=== PATIENT | female | born 1945 | race Caucasian/White ===

== ENCOUNTER 2016-09-22 07:43 | Day surgery (SDC) | payer MEDICARE, OTHER ==
[2016-09-17 14:49] VITALS: BMI 29.9
[~2016-09-22 07:43] MED LIST: LACTATED RINGERS 1,000 ML IV SCH
[2016-09-22 09:06] VITALS: RESP 18; TEMP 96.9
[2016-09-22 09:16] LABS: Glucose,Whole Blood 246 mg/dL (75-99)
[2016-09-22] MEDS ORDERED: LIDOCAINE 1% 20 ML VIAL (10MG/ML) FOR IV START INTRADERMA ONE (09:18)
[2016-09-22] MEDS ORDERED: LIDOCAINE 1% INJ 10MG/ML (20 ML MDV) ONE (09:20)
[2016-09-22] MEDS ORDERED: PROPOFOL 10 MG/ML 20 ML VIAL IV ONE (09:20)
--- NOTE | 2016-09-22 09:23 | P.GSHP ---
History of Present Illness H&P Date: 09/22/16 Chief Complaint: History of colon polyps This a 70-year-old female who presents today for colonoscopy. She is a history of previous colon polyps. Her last colonoscopy was 4 years ago. Past Medical History Past Medical History: Diabetes Mellitus, Deep Vein Thrombosis (DVT), Osteoarthritis (OA) Additional Past Medical History / Comment(s): DVT R leg History of Any Multi-Drug Resistant Organisms: None Reported Past Surgical History: Cholecystectomy, Tubal Ligation Additional Past Surgical History / Comment(s): [place] filter ; removal of benign adrenal gland tumor; colonoscopies Past Anesthesia/Blood Transfusion Reactions: No Reported Reaction Smoking Status: Current every day smoker Past Alcohol Use History: Rare Additional Past Alcohol Use History / Comment(s): has smoked for 40 years 1/2 pack a day Past Drug Use History: None Reported Additional Drug Use History / Comment(s): previous marijuana use - Past Family History Mother Family Medical History: No Reported History Medications and Allergies Home Medications Medication Instructions Recorded Confirmed Type Aspirin [Adult Low Dose Aspirin EC] 81 mg PO DAILY 09/17/16 09/22/16 History Insulin Glargine [Lantus] 10 unit SQ HS 09/17/16 09/22/16 History metFORMIN HCL [Metformin HCl] 500 mg PO BID 09/17/16 09/22/16 History Allergies Allergy/AdvReac Type Severity Reaction Status Date / Time No Known Allergies Allergy Verified 09/22/16 09:05 Surgical - Exam Vital Signs Temp Pulse Resp BP Pulse Ox 96.9 F L 79 18 139/78 98 09/22/16 09:05 09/22/16 09:05 09/22/16 09:05 09/22/16 09:05 09/22/16 09:05 - General well developed, no distress - Eyes PERRL - ENT normal pinna - Neck no masses - Respiratory normal expansion - Cardiovascular Rhythm: regular - Abdomen Abdomen: soft, non tender Results - Labs Abnormal Lab Results - Last 24 Hours (Table) 09/22/16 Range/Units 09:12 POC Glucose (mg/dL) 246 H (75-99) mg/dL Assessment and Plan Plan: History of colon polyps. We'll perform colonoscopy.
--- NOTE | 2016-09-22 09:39 | P.OP ---
Date of Procedure: 09/22/16 Preoperative Diagnosis: Colon polyp Postoperative Diagnosis: Sigmoid colon polyp Diverticulosis Procedure(s) Performed: Colonoscopy Implants: Anesthesia: MAC Surgeon: Dayton Prajapati Pathology: other (Sigmoid colon polyp) Condition: stable Disposition: PACU Indications for Procedure: Operative Findings: Description of Procedure: The patient's placed on the endoscopy table in the lateral position. She received IV sedation. Digital rectal exam was performed which revealed no abnormalities. The flexible colonoscope was then placed patient anus passed throughout the entire colon. The ileocecal valve was measured. The cecum, ascending colon and transverse colon appeared normal. In the descending and sigmoid colon there is diverticular changes. In the sigmoid colon there was another polyp seen this removed the forcep. Scope was then brought back the rectum and this appeared normal. Scope was withdrawn for patient.
[2016-09-22 10:11] VITALS: BP 159/86; PULSE 87
== END 2016-09-22 10:29 | disposition home or self-care (01) ==
LOC: ORWHC2ENDO 07:43
PROVIDERS: ATTEND Surgery
DX: Z12.11 Encounter for screening for malignant neoplasm of colon (principal); D12.5 Benign neoplasm of sigmoid colon; K57.30 Diverticulosis of large intestine without perforation or abscess without bleeding; E11.9 Type 2 diabetes mellitus without complications; M19.90 Unspecified osteoarthritis, unspecified site; F17.200 Nicotine dependence, unspecified, uncomplicated; Z86.010 Personal history of colon polyps; Z79.82 Long term (current) use of aspirin; Z79.84 Long term (current) use of oral hypoglycemic drugs; Z79.4 Long term (current) use of insulin; Z86.718 Personal history of other venous thrombosis and embolism; Z90.49 Acquired absence of other specified parts of digestive tract; Z98.51 Tubal ligation status
CPT/HCPCS: 45380; 88305; J2001; J2704

== ENCOUNTER → 2016-09-28 | Outpatient (CLI) | payer MEDICARE, OTHER ==
--- NOTE | 2016-09-29 11:20 | MM ---
Reason for exam: screening (asymptomatic). Last mammogram was performed 2 years and 1 month ago. History: Patient is postmenopausal. Family history of breast cancer in maternal grandmother. Benign US biopsy breast VAD LT of the left breast, September 12, 2014. Physical Findings: A clinical breast exam by your physician is recommended on an annual basis and results should be correlated with mammographic findings. MG 3D Screening Mammo W/Cad Bilateral CC and MLO view(s) were taken. Prior study comparison: September 12, 2014, left breast MG diagnostic mammo LT wo CAD. August 21, 2014, bilateral MG diagnostic mammo w CAD [place]. There are scattered fibroglandular densities. Previous mammotome biopsy in the left breast. No significant changes when compared with prior studies. ASSESSMENT: Benign, BI-RAD 2 RECOMMENDATION: Routine screening mammogram of both breasts in 1 year.
--- NOTE | 2016-09-29 11:33 | BD ---
EXAMINATION TYPE: MG DEXA axial skeleton. DATE OF EXAM: 09/28/2016 COMPARISON: NONE CLINICAL HISTORY: Height: 62 IN Weight: 170 LBS FRAX RISK QUESTIONS: Alcohol (3 or more units per day): NO Family History (Parent hip fracture): NO Glucocorticoids (More than 3mos): NO (Ex: prednisone, prednisolone, methylprednisolone, dexamethasone, and hydrocortisone). History of Fracture in Adulthood: NO Secondary Osteoporosis: 1. Type 1 Diabetes: NO 2. Hyperthyroidism: NO 3. Menopause before 45: NO 4. Malnutrition: NO 5. Chronic liver disease: NO Rheumatoid Arthritis: NO Current Tobacco Use: YES RISK FACTORS HISTORY OF: Active: MODERATE Postmenopausal woman: AGE 53 Lost more than 2 inches in height since high school: YES 3 " Frequent falls: BALANCE ISSUES MEDICATIONS: Additional Medications: VIT D, DIABETES MEDS EXAM MEASUREMENTS: Bone mineral densitometry was performed using the [employer] System. Bone mineral density as measured about the Lumbar spine is: ----- L1-L4(G/cm2): 0.960 T Score Values are as follows: ----- L2: -2.7 ----- L3: -2.0 ----- L4: -1.5 ----- L1-L4: -1.8 Bone mineral density has: Decreased -5.1% since study of: 01/12/2007 Bone mineral density about the R hip (g/cm2): 0.787 Bone mineral density about the L hip (g/cm2): 0.792 T Score values are as follows: -----R Neck: -1.8 -----L Neck: -1.8 -----R Total: -1.2 -----L Total: -1.1 Bone mineral density has: Decreased -15.0% since study of: 01/12/2007 IMPRESSION: Osteopenia (T Score between -2.5 and -1 as noted by T score values There is slightly increased risk of fracture and the patient may be considered for treatment. Re-Screen 2-5 years. Bone density is diminished 5.1% from the comparison 01/12/2007 within the lumbar spine. Bone density w ithin the bilateral hips is diminished 15% from 2017 NOTE: T-SCORE=SD OF THE YOUNG ADULT MEAN.
== END | disposition home or self-care (01) ==
LOC: RADMAMWWP 15:03
PROVIDERS: ATTEND Family Medicine
DX: Z12.31 Encounter for screening mammogram for malignant neoplasm of breast (principal); M85.80 Other specified disorders of bone density and structure, unspecified site
CPT/HCPCS: 77080; 77063; G0202

== ENCOUNTER → 2017-07-28 | Outpatient (CLI) | payer MEDICARE, OTHER ==
[2017-07-28 17:53] LABS: HCT 42.6 % (34.0-46.0); HGB 14.3 gm/dL (11.4-16.0); MCH 30.1 pg (25.0-35.0); MCHC 33.6 g/dL (31.0-37.0); MCV 89.7 fL (80.0-100.0); Mean Platelet Volume 7.6; Platelet Count 276 k/uL (150-450); RBC 4.75 m/uL (3.80-5.40); WBC 10.6 k/uL (3.8-10.6)
[2017-07-28 17:57] LABS: Anion Gap 11 mmol/L; Blood Urea Nitrogen 17 mg/dL (7-17); Carbon Dioxide 29 mmol/L (22-30); Chloride 97 mmol/L (98-107); Potassium 5.4 mmol/L (3.5-5.1); Sodium 137 mmol/L (137-145)
== END | disposition home or self-care (01) ==
LOC: LABPAT 16:54
PROVIDERS: ATTEND Internal Medicine Cardiovascular Disease
DX: Z01.812 Encounter for preprocedural laboratory examination (principal); I25.5 Ischemic cardiomyopathy
CPT/HCPCS: 36415; 80051; 82565; 84520; 85027

== ENCOUNTER 2017-08-01 07:38 | Day surgery (SDC) | payer MEDICARE, OTHER ==
[2017-07-29 08:55] VITALS: BMI 28.6
[~2017-08-01 07:38] MED LIST changes: +ALPRAZolam 0.25 MG TAB PO PRN; +ALPRAZolam 0.5 MG TAB PO PRN; +ASPIRIN 325 MG TAB PO STA; +ATORVASTATIN 80 MG TAB PO STA; -LACTATED RINGERS 1,000 ML IV SCH; +NITROGLYCERIN SL TABS 0.4 MG TAB SUBLINGUAL PRN; +SODIUM CHLORIDE 0.9% 1,000 ML in EMPTY BAG 1 BAG IV ONE
[2017-08-01 08:35] LABS: Glucose,Whole Blood 303 mg/dL (75-99)
[2017-08-01] MEDS ORDERED: INSULIN ASPART 100 UNIT/ML 1 ML 10 ML VIAL SQ ONE ×2 (08:39→11:37)
[2017-08-01] MEDS ORDERED: LIDOCAINE 2% INJ 20 MG/ML (20 ML MDV) ONE (09:00)
[2017-08-01] MEDS ORDERED: MIDAZOLAM 2 MG/2 ML VIAL ONE (09:00)
[2017-08-01] MEDS ORDERED: MIDAZOLAM 2 MG/2 ML VIAL IVP ONE (09:09)
[2017-08-01] MEDS ORDERED: LIDOCAINE 2% INJ 20 MG/ML SQ ONE (09:11)
[2017-08-01] MEDS ORDERED: BIVALIRUDIN BOLUS 250 MG/50 ML IV ONE (09:51)
[2017-08-01] MEDS ORDERED: BIVALIRUDIN 250 MG in SODIUM CHLORIDE 0.9% 50 ML IV ONE (09:53)
[2017-08-01] MEDS: NITROGLYCERIN 1000MCG/10ML SYRINGE INTRACORON ONE ×2 (10:04→10:30)
[2017-08-01] MEDS ORDERED: CLOPIDOGREL 75 MG TAB ONE (10:08)
[2017-08-01] MEDS ORDERED: CLOPIDOGREL 75 MG TAB PO ONE (10:10)
[2017-08-01] MEDS ORDERED: IOPAMIDOL-370 125ML BTL INJ ONE (10:10)
--- NOTE | 2017-08-01 10:11 | CC ---
CARDIAC CATHETERIZATION REPORT REFERRING PHYSICIAN: Dr. Preston Wolf. INDICATION: Ischemic cardiomyopathy with abnormal stress test. PROCEDURE NOTE: After obtaining informed consent, left heart catheterization, coronary angiogram are performed via the right femoral artery using standard Clemente catheters. Patient tolerated the procedure well without any obvious immediate complications. Patient received moderate conscious sedation and total sedation time was 18 minutes. FINDINGS: HEMODYNAMICS: Left ventricular end-diastolic pressure is 4-8 mm. There is no significant gradient across the aortic valve. LEFT VENTRICULOGRAM: Left ventriculogram: Left ventriculogram is not performed. ANGIOGRAPHIC DATA: 1. Left main coronary artery: Left main coronary artery is a normal-sized vessel appears calcified but is free of stenosis. Divides into left anterior descending coronary artery and circumflex coronary artery. 2. Left anterior descending coronary artery: LAD is a large vessel that wraps around the apex of the heart. There are homocollaterals going from the distal LAD to the OM branch. The [place] circumflex coronary artery is a codominant system, gives off a large caliber OM branch that shows a long area of stenosis, at its worse it is an 80% to 90% stenosis. 3. Right coronary artery appears calcified, shows an area of stenosis in its midportion, at its worst it seems to be 70% stenosis. The distal LAD also shows an area of stenosis. CONCLUSIONS: [place] 3-vessel coronary artery disease as described above with a critical lesion within the OM branch and the mid RCA. PLAN: I will ask Dr. Sal the on-call glove tagger to evaluate the angiographic data and advise on angioplasty of the [place] OM and right coronary artery. MMODL / IJN: [id number] /
[2017-08-01] MEDS ORDERED: IOPAMIDOL-370 100ML BTL INJ ONE (10:35)
[2017-08-01] MEDS ORDERED: RX INFO: IV CONTRAST WAS GIVEN 1 EACH MISC MISCELLANE PRN (10:41)
[2017-08-01] MEDS ORDERED: MAG HYDROX/AL HYDROX/SIMETH 30 ML CUP PO PRN (10:41)
[2017-08-01] MEDS ORDERED: ATROPINE SULFATE 0.1 MG/ML 10ML SYRINGE IV PRN (10:41)
[2017-08-01] MEDS ORDERED: ZOLPIDEM 5 MG TAB PO PRN (10:41)
[2017-08-01] MEDS ORDERED: SODIUM CHLORIDE 0.9% 1,000 ML IV SCH (10:45)
[2017-08-01 11:06] LABS: Glucose,Whole Blood 240 mg/dL (75-99)
[2017-08-01] MEDS: NYSTATIN 100,000 UNIT/GM POWD 15 GM TOPICAL SCH ×2 (13:42→20:12)
[2017-08-01] MEDS: HYDROcodone/APAP 5-325MG 1 EACH TAB PO PRN ×2 (15:09→21:12)
[2017-08-01 17:07] LABS: Glucose,Whole Blood 234 mg/dL (75-99)
[2017-08-01] MEDS: INSULIN ASPART 100 UNIT/ML 1 ML 10 ML VIAL SQ SCH ×2 (17:52→21:15)
[2017-08-01 20:23] LABS: Glucose,Whole Blood 262 mg/dL (75-99)
[2017-08-02 02:44] LABS: Glucose,Whole Blood 150 mg/dL (75-99)
[2017-08-02] MEDS: HYDROcodone/APAP 5-325MG 1 EACH TAB PO PRN (02:56)
[2017-08-02 06:05] LABS: Basophils % (A) 1 %; Eosinophils # (A) 0.3 k/uL (0-0.7); Eosinophils % (A) 3 %; HCT 39.5 % (34.0-46.0); HGB 13.2 gm/dL (11.4-16.0); Lymphocytes # (A) 1.6 k/uL (1.0-4.8); Lymphocytes % (A) 21 %; MCH 29.3 pg (25.0-35.0); MCHC 33.5 g/dL (31.0-37.0); MCV 87.3 fL (80.0-100.0); Mean Platelet Volume 7.7; Monocytes # (A) 0.4 k/uL (0-1.0); Monocytes % (A) 5 %; Neutrophils # (A) 5.1 k/uL (1.3-7.7); Neutrophils % (A) 68 %; Platelet Count 197 k/uL (150-450); RBC 4.52 m/uL (3.80-5.40); WBC 7.5 k/uL (3.8-10.6)
[2017-08-02 06:14] LABS: Glucose,Whole Blood 202 mg/dL (75-99)
[2017-08-02 06:18] LABS: Anion Gap 5 mmol/L; Blood Urea Nitrogen 15 mg/dL (7-17); Calcium 8.5 mg/dL (8.4-10.2); Carbon Dioxide 28 mmol/L (22-30); Chloride 103 mmol/L (98-107); Glucose 189 mg/dL (74-99); Potassium 4.9 mmol/L (3.5-5.1); Sodium 136 mmol/L (137-145)
[2017-08-02] MEDS: INSULIN ASPART 100 UNIT/ML 1 ML 10 ML VIAL SQ SCH (06:43)
[2017-08-02 08:36] VITALS: BP 114/68; PULSE 81; RESP 18; TEMP 96.9
[2017-08-02] MEDS: NYSTATIN 100,000 UNIT/GM POWD 15 GM TOPICAL SCH (08:55)
[2017-08-02] MEDS ORDERED: METOPROLOL SUCCINATE (ER) 25 MG TAB.ER.24H PO SCH (09:00)
[2017-08-02] MEDS ORDERED: INSULIN DETEMIR 100 UNIT/ML 10 ML VIAL SQ SCH (09:00)
[2017-08-02] MEDS ORDERED: ASPIRIN 325 MG TAB PO SCH (09:00)
[2017-08-02] MEDS ORDERED: CLOPIDOGREL 75 MG TAB PO SCH (09:00)
[2017-08-02] MEDS ORDERED: ATORVASTATIN 40 MG TAB PO SCH (10:14)
--- NOTE | 2017-08-02 10:23 | P.DS ---
Providers Date of admission: 08/01/2017 Expected date of discharge: 08/02/17 Attending physician: Alex Kerr Consults: 08/01/17 10:41 Consult Physician Routine Consulting Provider: [facility] Consult Reason/Comments: Post Interventional patient Do you want consulting provider notified?: Already Contacted Primary care physician: Stated None Hospital Course: Mrs. Ramos is a pleasant 71-year-old female who was brought in for an elective cardiac catheterization after a positive outpatient stress test. Catheterization revealed LM calcified but free of stenosis, LAD with collaterals from distal LAD to OM branch. [place] circumflex gives off to large OM with large area of stenosis 80-90%, RCA calcified with mid 70% stenosis. Stenting was performed to the OM and mid RCA per Dr. Sal. She is stable for discharge home on the following: plavix 75 mg daily, aspirin 325 mg, atorvastatin 40 mg and toprol 25 mg from a cardiac perspective. Resume lantus as well. Metformin to be held for one more day to resume on . Potassium on admission was elevated and kaexylate was administered. 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 LIZA inhibitor not being added at this time for that reason. She denies symptoms of chest pain, shortness of breath, palpitations, nausea, vomiting or diaphroesis. Laboratory data reviewed, hemoglobin 13.2, platelets 197, potassium 4.9, sodium 136, creatinine 0.53. Telemetry tracings have been sinus rhythm. Follow up appt has been made. Plan has been discussed with the patient and her . Blood pressure 114/68 heart rate 81 afebrile maintaining oxygen saturation on room air GENERAL: This is a 71-year-old female in no apparent distress at the time of my examination. HEENT: Head is atraumatic, normocephalic. Pupils are equal, round. Sclerae anicteric. Conjunctivae are clear. Mucous membranes of the mouth are moist. Neck is supple. There is no jugular venous distention. No carotid bruit is heard. LUNGS: Clear to auscultation no wheezes, rales or rhonchi. No chest wall tenderness is noted on palpation or with deep breathing. HEART: Regular rate and rhythm without murmurs, rubs or gallops. S1 and S2 heard. ABDOMEN: Soft, nontender. Bowel sounds are heard. No organomegaly noted. EXTREMITIES: No evidence of peripheral edema and no calf tenderness noted. Right groin soft, non-tender, no hematoma, no bleeding and no ecchymosis. VASCULAR: Radial and dorsalis pedis pulses palpated, no evidence of clubbing. NEUROLOGIC: Patient is awake, alert and oriented x3. Patient Condition at Discharge: Good Plan - Discharge Summary Discharge Rx Participant: No New Discharge Prescriptions: New Clopidogrel [Plavix] 75 mg PO DAILY #30 tab Continue Insulin Glargine [Lantus] 32 unit SQ QAM metFORMIN HCL [Metformin HCl] 500 mg PO BID Aspirin [Adult Low Dose Aspirin EC] 81 mg PO DAILY HYDROcodone/APAP 5-325MG [[place] 5-325] 1 tab PO Q6HR PRN PRN Reason: Pain Nitroglycerin Sl Tabs [Nitrostat] 0.4 mg SUBLINGUAL Q5M PRN PRN Reason: Chest Pain Metoprolol Succinate (ER) [Toprol XL] 25 mg PO DAILY Discharge Medication List Aspirin [Adult Low Dose Aspirin EC] 81 mg PO DAILY 09/17/16 [History] Insulin Glargine [Lantus] 32 unit SQ QAM 09/17/16 [History] metFORMIN HCL [Metformin HCl] 500 mg PO BID 09/17/16 [History] HYDROcodone/APAP 5-325MG [[place] 5-325] 1 tab PO Q6HR PRN 07/29/17 [History] Metoprolol Succinate (ER) [Toprol XL] 25 mg PO DAILY 07/29/17 [History] Nitroglycerin Sl Tabs [Nitrostat] 0.4 mg SUBLINGUAL Q5M PRN 07/29/17 [History] Clopidogrel [Plavix] 75 mg PO DAILY #30 tab 08/02/17 [Rx] Follow up Appointment(s)/Referral(s): Alex Kerr MD [STAFF PHYSICIAN] - 08/08/17 1:15 pm (tuesday) Patient Instructions/Handouts: *Sur[facility] - After Heart Catheterization - Utility Agent Instructions, Left Heart Catheterization (DC) Discharge Disposition: HOME SELF-CARE
[2017-08-02 15:04] LABS: Hemoglobin A1C 8.8 % (4.0-6.0)
--- NOTE | 2017-08-03 08:56 | PTCA ---
PERCUTANEOUSTRANS CORORONARY ANGIOGRAPHY DATE OF SERVICE: August 01, 2017 PERFORMING PHYSICIAN: Leonardo Sla MD. PROCEDURE PERFORMED: 1. Successful stenting of the left circumflex using 2.5 x 23 mm Vision BMS with good angiographic results. 2. Successful stenting of the RCA using 3.0 x 15 mm Vision BMS with a good angiographic results. INDICATION: This is a very pleasant 72-year-old female patient who sees Dr. Kerr in the office as an outpatient who was diagnosed recently with cardiomyopathy. She is going to undergo right foot surgery, which was a vascular surgery for evidence of critical limb ischemia. She underwent heart catheterization by Dr. Kerr and that revealed severe 2-vessel coronary artery disease involving the left circumflex and RCA and the decision was made towards percutaneous coronary intervention. We did perform the stenting using bare metal stent because the patient is going to have urgent vascular surgery. APPROACH: Right common femoral artery. COMPLICATION: None. LEVEL OF SEDATION: Moderate with sedation length of 44 minutes. PROCEDURE DESCRIPTION: Please refer to the diagnostic heart catheterization was performed by Dr. Kerr. After that, and after reviewing the angiogram, we decided to pursue with intervention on the the left circumflex and RCA. At that point, anticoagulation was initiated using Angiomax. For the left circumflex intervention, I took an [id number] guide. The left main was engaged. The left circumflex was wired using a Whisper J wire. Subsequently I did predilatation using 2.0 x 20 mm balloon and after that I deployed 2.5 x 23 mm vision PMS where the stent was positioned under fluoroscopy guidance and deployed under its nominal pressure. The following angiogram showed good angiographic results and the procedure at that point was completed on the left circumflex. I initially tried to engage the RCA using JR4 catheter, but I had a hard time, so I did engage the RCA using a Juan Chao catheter. After that I did wire the RCA using a whisper wire. I did balloon angioplasty of the mid RCA using 2.5 mm balloon. I tried to advance a 3.0 x 15 mm vision, BMS, but the stent will not cross the lesion and I did wire the RCA using a vitaliy wire which was a run-through wire. In spite of that, I was unable to advance the stent over the Whisper wire. I was able to advance the stent over the run-through wire where the stent was positioned again under fluoroscopy guidance and deployed under its nominal pressure after I pulled the Whisper wire out. The following angiogram showed good angiographic results and the procedure was completed without any complication. POSTPROCEDURE MANAGEMENT: 1. Dual anti-platelet therapy for 2 weeks. 2. Risk factors modifications. 3. Follow up with the patient. WOLF / HERMINIA: [id number] /
[2017-08-03] MEDS ORDERED: ATORVASTATIN 40 MG TAB PO SCH (09:00)
== END 2017-08-02 10:26 | disposition home or self-care (01) ==
LOC: CATHCVL 07:38 → 6SEL 11:55 → CATHCVL 08-02 10:26
PROVIDERS: ATTEND Internal Medicine Cardiovascular Disease
DX: I25.10 Atherosclerotic heart disease of native coronary artery without angina pectoris (principal); I44.4 Left anterior fascicular block; I51.7 Cardiomegaly; I25.5 Ischemic cardiomyopathy; R94.39 Abnormal result of other cardiovascular function study; E10.51 Type 1 diabetes mellitus with diabetic peripheral angiopathy without gangrene; E10.622 Type 1 diabetes mellitus with other skin ulcer; I73.9 Peripheral vascular disease, unspecified; L97.919 Non-pressure chronic ulcer of unspecified part of right lower leg with unspecified severity; E78.5 Hyperlipidemia, unspecified; I25.2 Old myocardial infarction; F17.210 Nicotine dependence, cigarettes, uncomplicated; Z79.02 Long term (current) use of antithrombotics/antiplatelets; Z79.82 Long term (current) use of aspirin; Z79.4 Long term (current) use of insulin; Z79.899 Other long term (current) drug therapy
CPT/HCPCS: 94760; 93458; 92928 ×2; 80048; 84132; 85025; 83036; C1769 ×3; C1876 ×2; C1725 ×2; C1887; C1894; J2001; J2250; J0583; Q9967 ×2

== ENCOUNTER → 2019-05-08 | Outpatient (CLI) | payer MEDICARE, OTHER ==
[2019-05-08 16:50] LABS: African American GFR (CKD) >90 (>60 ml/min/1.73 sqM); Anion Gap 7 mmol/L; Blood Urea Nitrogen 14 mg/dL (7-17); Carbon Dioxide 26 mmol/L (22-30); Chloride 106 mmol/L (98-107); HCT 36.2 % (34.0-46.0); HGB 10.8 gm/dL (11.4-16.0); Hypochromasia Marked; MCH 25.2 pg (25.0-35.0); MCV 83.9 fL (80.0-100.0); Mean Platelet Volume 9.2; Non-African American GFR(CKD) >90 (>60 ml/min/1.73 sqM); Platelet Count 268 k/uL (150-450); Potassium 4.4 mmol/L (3.5-5.1); RBC 4.31 m/uL (3.80-5.40); RDW 14.7 % (11.5-15.5); Sodium 139 mmol/L (137-145); WBC 8.7 k/uL (3.8-10.6)
== END | disposition home or self-care (01) ==
LOC: LABPAT 15:59
PROVIDERS: ATTEND Internal Medicine Cardiovascular Disease
DX: Z01.812 Encounter for preprocedural laboratory examination (principal); I25.10 Atherosclerotic heart disease of native coronary artery without angina pectoris
CPT/HCPCS: 36415; 80051; 82565; 84520; 85027

== ENCOUNTER 2019-05-11 06:04 | Day surgery (SDC) | payer MEDICARE, OTHER ==
[2019-05-09 12:15] VITALS: BMI 32.4
[2019-05-11] MEDS ORDERED: ALPRAZolam 0.5 MG TAB PO PRN (06:23)
[2019-05-11] MEDS ORDERED: SODIUM CHLORIDE 0.9% 1,000 ML in EMPTY BAG 1 BAG IV ONE (06:23)
[2019-05-11] MEDS ORDERED: NITROGLYCERIN SL TABS 0.4 MG TAB SUBLINGUAL PRN (06:23)
[2019-05-11] MEDS ORDERED: ASPIRIN 325 MG TAB PO STA (06:23)
[2019-05-11] MEDS ORDERED: ATORVASTATIN 80 MG TAB PO STA (06:23)
[2019-05-11] MEDS ORDERED: ALPRAZolam 0.25 MG TAB PO PRN (06:23)
[2019-05-11] MEDS ORDERED: ASPIRIN 81 MG ONE (06:30)
[2019-05-11 06:55] VITALS: RESP 16; TEMP 97.9
[2019-05-11 07:01] LABS: Glucose,Whole Blood 112 mg/dL (75-99)
[2019-05-11] MEDS ORDERED: LIDOCAINE 1% INJ 10MG/ML (20 ML MDV) ONE (07:34)
[2019-05-11] MEDS ORDERED: fentaNYL (PF) 50 MCG/ML 2 ML AMP ONE (07:34)
[2019-05-11] MEDS ORDERED: MIDAZOLAM 2 MG/2 ML VIAL IVP ONE (07:48)
[2019-05-11] MEDS ORDERED: fentaNYL (PF) 50 MCG/ML 2 ML AMP IV ONE (07:49)
[2019-05-11] MEDS ORDERED: LIDOCAINE 1% INJ 10MG/ML (20 ML MDV) SQ ONE (07:56)
[2019-05-11] MEDS ORDERED: IOPAMIDOL-370 125ML BTL INJ ONE (08:14)
[2019-05-11] MEDS ORDERED: RX INFO: IV CONTRAST WAS GIVEN 1 EACH MISC MISCELLANE PRN (08:18)
[2019-05-11] MEDS ORDERED: SODIUM CHLORIDE 0.9% 1,000 ML IV SCH (08:30)
--- NOTE | 2019-05-11 08:47 | CC ---
CARDIAC CATHETERIZATION REPORT INDICATION: Abnormal stress test in a patient with known CAD, status post prior angioplasty of right coronary artery and circumflex OM. PROCEDURE NOTE: After obtaining informed consent, left heart catheterization and coronary angiogram are performed via the left femoral artery using standard [place] catheters. The patient tolerated the procedure well without any obvious immediate complications. The patient has peripheral vascular disease and will have manual hemostasis. She received moderate conscious sedation. Total sedation time was 17 minutes. FINDINGS: 1. HEMODYNAMICS: Left ventricular end-diastolic pressure is 12 to 14 mm. There is no significant gradient across the aortic valve. 2. LEFT VENTRICULOGRAM: Left ventriculogram is not performed. 3. ANGIOGRAPHIC DATA: Left Main Coronary Artery: Left main coronary artery appears calcified but is free of significant stenosis. Divides into left anterior descending coronary artery and circumflex coronary artery. LAD shows mild atherosclerotic plaque, but LAD and its branches are free of significant stenosis. Circumflex coronary artery which is a codominant system gives off a large caliber OM branch. The previously stented segment has a 70% to 80% in-stent restenosis. Right coronary artery is a large codominant vessel that was previously stented with a stent that extended from proximal to mid RCA and the stent appears patent. CONCLUSION: In-stent restenosis involving circumflex OM branch. PLAN: I reviewed angiographic data with the patient. The plan at this stage is to treat her with medical therapy. Let her go through the PLANER OPERATOR / GRADER surgery that she is undergoing. Performing an angioplasty would significantly delay her surgery. She needs to be on dual antiplatelet therapy for at least the next several months. Her outcomes with bare metal stent are not optimal. Hence we will treat her medically, let her go through surgery and schedule her for angioplasty of the OM branch in 6 weeks. MMODL / IJN: [id number] /
[2019-05-11 09:18] LABS: Glucose,Whole Blood 109 mg/dL (75-99)
[2019-05-11] MEDS ORDERED: Acetaminophen-Codeine 300-30mg TAB PO STA (10:35)
[2019-05-11] MEDS ORDERED: GABAPENTIN 100 MG CAP PO STA (10:35)
[2019-05-11] MEDS ORDERED: Acetaminophen-Codeine 300-30mg TAB ONE (10:36)
[2019-05-11 15:38] VITALS: BP 162/72; PULSE 78
== END 2019-05-11 15:40 | disposition home or self-care (01) ==
LOC: CATHCVL 06:04
PROVIDERS: ATTEND Internal Medicine Cardiovascular Disease
DX: T82.858A Stenosis of other vascular prosthetic devices, implants and grafts, initial encounter (principal); I25.10 Atherosclerotic heart disease of native coronary artery without angina pectoris; I25.5 Ischemic cardiomyopathy; E11.9 Type 2 diabetes mellitus without complications; E78.5 Hyperlipidemia, unspecified; I73.9 Peripheral vascular disease, unspecified; Z95.5 Presence of coronary angioplasty implant and graft; Z72.0 Tobacco use; Z89.201 Acquired absence of right upper limb, unspecified level; Z89.511 Acquired absence of right leg below knee; Z79.82 Long term (current) use of aspirin; Z79.4 Long term (current) use of insulin; Z79.899 Other long term (current) drug therapy; Z79.01 Long term (current) use of anticoagulants; Z79.02 Long term (current) use of antithrombotics/antiplatelets
CPT/HCPCS: 93458; C1769 ×2; C1894; J2250; J2001; J3010; Q9967

== ENCOUNTER → 2019-09-25 | Outpatient (CLI) | payer MEDICARE, OTHER ==
[2019-09-25 12:56] LABS: Anisocytosis Slight; HCT 38.7 % (34.0-46.0); HGB 12.2 gm/dL (11.4-16.0); Hypochromasia Marked; MCH 26.4 pg (25.0-35.0); MCHC 31.6 g/dL (31.0-37.0); MCV 83.7 fL (80.0-100.0); Mean Platelet Volume 8.8; Platelet Count 275 k/uL (150-450); RBC 4.63 m/uL (3.80-5.40); RDW 16.2 % (11.5-15.5); WBC 10.5 k/uL (3.8-10.6)
[2019-09-25 13:08] LABS: African American GFR (CKD) >90 (>60 ml/min/1.73 sqM); Anion Gap 4 mmol/L; Blood Urea Nitrogen 13 mg/dL (7-17); Carbon Dioxide 30 mmol/L (22-30); Chloride 105 mmol/L (98-107); Non-African American GFR(CKD) >90 (>60 ml/min/1.73 sqM); Potassium 4.7 mmol/L (3.5-5.1); Sodium 139 mmol/L (137-145)
== END | disposition home or self-care (01) ==
LOC: LABWHC1 10:50
PROVIDERS: ATTEND Internal Medicine Interventional Cardiology
DX: Z01.818 Encounter for other preprocedural examination (principal); I25.10 Atherosclerotic heart disease of native coronary artery without angina pectoris
CPT/HCPCS: 36415; 80051; 82565; 84520; 85027

== ENCOUNTER 2019-10-02 06:15 | Day surgery (SDC) | payer MEDICARE, OTHER ==
[~2019-10-02 06:15] MED LIST changes: -ASPIRIN 325 MG TAB PO STA; -ATORVASTATIN 80 MG TAB PO STA
[2019-10-02] MEDS ORDERED: ASPIRIN 81 MG ONE (06:38)
[2019-10-02] MEDS ORDERED: INSULIN ASPART (NovoLOG) 100 UNIT/ML VIAL SQ ONE (06:55)
[2019-10-02 06:58] LABS: Glucose,Whole Blood 207 mg/dL (75-99)
[2019-10-02] MEDS ORDERED: ASPIRIN 325 MG TAB PO ONE (07:00)
[2019-10-02] MEDS ORDERED: ATORVASTATIN 80 MG TAB PO ONE (07:00)
[2019-10-02] MEDS ORDERED: LIDOCAINE 1% INJ 10MG/ML (20 ML MDV) ONE (07:23)
[2019-10-02] MEDS ORDERED: MIDAZOLAM 2 MG/2 ML VIAL IV ONE (08:04)
[2019-10-02] MEDS ORDERED: LIDOCAINE 1% INJ 10MG/ML (20 ML MDV) SQ ONE (08:08)
[2019-10-02] MEDS ORDERED: fentaNYL (PF) 50 MCG/ML 2 ML AMP ONE (08:08)
[2019-10-02] MEDS ORDERED: fentaNYL (PF) 50 MCG/ML 2 ML AMP IV ONE (08:09)
[2019-10-02] MEDS ORDERED: BIVALIRUDIN 250 MG in SODIUM CHLORIDE 0.9% 50 ML IV ONE (08:20)
[2019-10-02] MEDS ORDERED: BIVALIRUDIN BOLUS 250 MG/50 ML IV ONE (08:20)
[2019-10-02] MEDS ORDERED: CLOPIDOGREL 75 MG TAB ONE (08:22)
[2019-10-02] MEDS ORDERED: CLOPIDOGREL 75 MG TAB PO ONE (08:25)
[2019-10-02] MEDS ORDERED: NITROGLYCERIN 1000MCG/10ML SYRINGE INTRACORON ONE (08:30)
[2019-10-02] MEDS ORDERED: DOCUSATE 100 MG CAP PO PRN (08:37)
[2019-10-02] MEDS ORDERED: NITROGLYCERIN SL TABS 0.4 MG TAB SUBLINGUAL PRN ×2 (08:37→08:38)
[2019-10-02] MEDS ORDERED: Acetaminophen-Codeine 300-30mg TAB PO PRN (08:37)
[2019-10-02] MEDS ORDERED: ATROPINE SULFATE 0.1 MG/ML 10ML SYRINGE IV PRN (08:38)
[2019-10-02] MEDS ORDERED: ZOLPIDEM 5 MG TAB PO PRN (08:38)
[2019-10-02] MEDS ORDERED: RX INFO: IV CONTRAST WAS GIVEN 1 EACH MISC MISCELLANE PRN (08:38)
[2019-10-02] MEDS ORDERED: MAG HYDROX/AL HYDROX/SIMETH 30 ML CUP PO PRN (08:38)
[2019-10-02] MEDS ORDERED: IOPAMIDOL-370 125ML BTL INJ ONE (08:42)
[2019-10-02] MEDS ORDERED: SODIUM CHLORIDE 0.9% 1,000 ML IV SCH (08:45)
--- NOTE | 2019-10-02 09:20 | PTCA ---
PERCUTANEOUSTRANS CORORONARY ANGIOGRAPHY DATE OF SERVICE: October 02, 2019 PERFORMING PHYSICIAN: Leonardo Sal MD. PROCEDURE PERFORMED: 1. Successful stenting of the first obtuse marginal branch of the left circumflex using 2.5 x 18 mm Xience JESUS with an excellent angiographic result and reduction of stenosis from 80% to 0%. INDICATION: This is a 73-year-old female patient who sees Dr. Kerr in the office as an outpatient with coronary artery disease and prior stenting of the RCA and LCX, peripheral arterial disease, diabetes, hypertension, and dyslipidemia, who underwent a heart catheterization by Dr. Kerr recently for preop cardiac assessment before noncardiac surgery. The heart catheterization revealed severe disease involving the first obtuse marginal branch of the left circumflex. The patient underwent [id number] amputation and she was brought today to undergo an intervention on the left circumflex. APPROACH: Left common femoral artery. COMPLICATION: None. LEVEL OF SEDATION: Moderate with sedation length of 28 minutes. PROCEDURE DESCRIPTION: After obtaining an informed consent, the patient was brought to the cardiac senior label specialist. The left common femoral artery was cannulated using micropuncture technique, the micropuncture wire passed easily then I placed a 6-[place] sheath at the left groin. Anticoagulation was initiated using Angiomax. Subsequently, I did engage the left main using JL4 guide. I did wire the LCX using a run-through wire. Balloon angioplasty was achieved by 2.5 x 12 mm balloon which was inflated under 14 atmospheres for 20 seconds before I deployed 2.5 x 18 mm Xience JESUS where the stent was positioned under fluoroscopy guidance and deployed under its nominal pressure, under 14 atmospheres for 20 seconds. The following angiogram showed excellent angiographic results and the procedure was completed without any complication. POSTPROCEDURE MANAGEMENT: 1. Dual anti-platelet therapy. 2. Risk factors modifications. 3. Follow up with the patient. MMODL / IJN: [id number] /
[2019-10-02 11:54] LABS: Glucose,Whole Blood 155 mg/dL (75-99)
[2019-10-02] MEDS: LISINOPRIL 2.5 MG TAB PO SCH (11:59)
[2019-10-02] MEDS: ASPIRIN 81 MG PO SCH (11:59)
[2019-10-02] MEDS: FUROSEMIDE 20 MG TAB PO SCH (11:59)
[2019-10-02] MEDS: METOPROLOL SUCCINATE (ER) 25 MG TAB.ER.24H PO SCH (12:00)
[2019-10-02] MEDS: GABAPENTIN 100 MG CAP PO SCH (15:45)
[2019-10-02 16:38] LABS: Glucose,Whole Blood 229 mg/dL (75-99)
[2019-10-02 20:47] LABS: Glucose,Whole Blood 272 mg/dL (75-99)
[2019-10-02] MEDS: INSULIN ASPART (NovoLOG) 100 UNIT/ML VIAL SQ SCH (20:51)
[2019-10-02] MEDS ORDERED: ATORVASTATIN 80 MG TAB PO SCH (21:00)
[2019-10-02] MEDS ORDERED: INSULN ASP PRT/INSULIN ASPART 100 UNIT/ML 10 ML VIAL SQ SCH (21:00)
[2019-10-02] MEDS ORDERED: GABAPENTIN 300 MG CAP PO SCH (21:00)
[2019-10-03 06:10] LABS: Glucose,Whole Blood 163 mg/dL (75-99)
[2019-10-03] MEDS: INSULIN ASPART (NovoLOG) 100 UNIT/ML VIAL SQ SCH (06:48)
[2019-10-03] MEDS ORDERED: INSULN ASP PRT/INSULIN ASPART 100 UNIT/ML 10 ML VIAL SQ SCH (07:30)
[2019-10-03 07:43] LABS: African American GFR (CKD) >90 (>60 ml/min/1.73 sqM); Anion Gap 4 mmol/L; Blood Urea Nitrogen 16 mg/dL (7-17); Calcium 8.4 mg/dL (8.4-10.2); Carbon Dioxide 28 mmol/L (22-30); Chloride 105 mmol/L (98-107); Glucose 138 mg/dL (74-99); Non-African American GFR(CKD) >90 (>60 ml/min/1.73 sqM); Potassium 4.5 mmol/L (3.5-5.1); Sodium 137 mmol/L (137-145)
[2019-10-03 08:03] LABS: Anisocytosis Slight; Basophils # (A) 0.1 k/uL (0-0.2); Basophils % (A) 1 %; Eosinophils # (A) 0.2 k/uL (0-0.7); Eosinophils % (A) 2 %; HCT 33.3 % (34.0-46.0); HGB 10.2 gm/dL (11.4-16.0); Hypochromasia Moderate; Lymphocytes # (A) 1.6 k/uL (1.0-4.8); Lymphocytes % (A) 24 %; MCH 25.7 pg (25.0-35.0); MCHC 30.7 g/dL (31.0-37.0); MCV 83.8 fL (80.0-100.0); Mean Platelet Volume 8.7; Monocytes # (A) 0.3 k/uL (0-1.0); Monocytes % (A) 4 %; Neutrophils # (A) 4.5 k/uL (1.3-7.7); Neutrophils % (A) 68 %; Platelet Count 211 k/uL (150-450); RBC 3.98 m/uL (3.80-5.40); RDW 16.4 % (11.5-15.5); WBC 6.6 k/uL (3.8-10.6)
[2019-10-03] MEDS: GABAPENTIN 100 MG CAP PO SCH (08:18)
[2019-10-03] MEDS: METOPROLOL SUCCINATE (ER) 25 MG TAB.ER.24H PO SCH (08:19)
[2019-10-03] MEDS: ASPIRIN 81 MG PO SCH (08:19)
[2019-10-03] MEDS: LISINOPRIL 2.5 MG TAB PO SCH (08:19)
[2019-10-03] MEDS: FUROSEMIDE 20 MG TAB PO SCH (08:19)
[2019-10-03] MEDS ORDERED: CLOPIDOGREL 75 MG TAB PO SCH (09:00)
[2019-10-03 09:58] VITALS: BP 131/61; PULSE 82; RESP 18; TEMP 98.2
== END 2019-10-03 11:37 | disposition home or self-care (01) ==
LOC: CATHCVL 06:15 → 3SCARD 08:34 → CATHCVL 10-03 11:37
PROVIDERS: ATTEND Internal Medicine Interventional Cardiology
DX: I25.10 Atherosclerotic heart disease of native coronary artery without angina pectoris (principal); I25.5 Ischemic cardiomyopathy; I10 Essential (primary) hypertension; I73.9 Peripheral vascular disease, unspecified; E78.2 Mixed hyperlipidemia; E11.9 Type 2 diabetes mellitus without complications; F17.210 Nicotine dependence, cigarettes, uncomplicated; Z79.4 Long term (current) use of insulin; Z79.01 Long term (current) use of anticoagulants; Z79.82 Long term (current) use of aspirin; Z79.899 Other long term (current) drug therapy; Z95.5 Presence of coronary angioplasty implant and graft
CPT/HCPCS: 80048; 85025; C9600; C1887 ×2; C1725; C1769 ×3; C1894; C1874; J2250; J2001; J3010; J0583; Q9967

== ENCOUNTER → 2021-06-29 | Outpatient (CLI) | payer MEDICARE, OTHER ==
--- NOTE | 2021-06-29 09:12 | US ---
EXAMINATION TYPE: US abd limited kidneys/bladder DATE OF EXAM: 06/29/2021 COMPARISON: None CLINICAL HISTORY: 75 year-old female R10.9 RT FLANK PAIN,M54.50LOW BACK PAIN,R10.11. Patient doesn't know if she had her GB removed. TECHNIQUE: Multiple sonographic images of the right upper quadrant, both kidneys, and bladder are obt ained. EXAM MEASUREMENTS: Liver Length: 19.2 cm CBD: 1.2 cm Right Kidney: 11.5 x 5.9 x 5.2 cm Left Kidney: 11.8 x 4.6 x 5.1 cm Pancreas: Echogenic in appearance. Tail not well seen due to overlying bowel gas Liver: Enlarged in size. Homogeneous appearance. Some mild double duct signs. Gallbladder: Not visualized CBD: Dilated Right Kidney: Extrarenal pelvis. No calyceal dilatation to suggest hydronephrosis. Left Kidney: No hydronephrosis or masses seen Bladder: Under distention limits its evaluation. Left jet seen IMPRESSION: 1. Biliary ductal dilatation including mild intrahepatic ductal dilatation. The bile duct measures up to 1.2 cm. We are unable to visualize the gallbladder. Patient is unaware if it is surgically absent or still present. Recommend correlation with alkaline phosphatase and bilirubin levels to exclude bi liary obstruction. 2. Mild hepatomegaly (19.2 cm). 3. No hydronephrosis on either side.
== END | disposition home or self-care (01) ==
LOC: RADUSWWP 07:46
PROVIDERS: ATTEND Family Medicine
DX: K83.8 Other specified diseases of biliary tract (principal); R16.0 Hepatomegaly, not elsewhere classified; M54.50 Low back pain, unspecified
CPT/HCPCS: 76705; 76770